=== PATIENT | female | born 1960 | race Caucasian/White ===

== ENCOUNTER 2016-05-25 09:55 | Emergency (ER) | payer OTHER ==
[~2016-05-25] VITALS: Ht 160 cm; Wt 100.7 kg
[2016-05-25 10:27] VITALS: BP 155/52
== END 2016-05-25 11:56 | disposition home or self-care (01) ==
LOC: EME 09:55
PROC: 3E0234Z Introduction of Serum, Toxoid and Vaccine into Muscle, Percutaneous Approach (ICD-10-PCS; principal; 2016-05-25)
DX: Z20.3 Contact with and (suspected) exposure to rabies (principal); Z23 Encounter for immunization
CPT/HCPCS: 99281; 99282